=== PATIENT | female | born 1985 | race Two or more races ===

== ENCOUNTER 2016-10-15 13:39 | Emergency (ER) | payer OTHER ==
[2016-10-15 13:43] VITALS: BP 143/95; PULSE 86; TEMP 98; BMI 37.8
--- NOTE | 2016-10-15 15:17 | PDOC ---
History of Present Illness - General Chief Complaint: Injury Stated Complaint: RT HAND INJURY Time Seen by Provider: 10/15/16 15:12 History Source: Patient Exam Limitations: No Limitations - History of Present Illness Initial Comments: 10/15/16 17:30 Chief complaint: Fall Patient is a healthy 31-year-old female who states she tripped and fell and hit her left hand. Patient states she also hit her knees but is able to walk and they're just a little sore. GENERAL/CONSTITUTIONAL: No fever, weakness. dizziness HEAD, EYES, EARS, NOSE AND THROAT: No change in vision. No ear pain or discharge. No sore throat. CARDIOVASCULAR: No chest pain RESPIRATORY: No shortness of breath or cough GASTROINTESTINAL: No pain, nausea, vomiting, diarrhea or constipation GENITOURINARY: No dysuria MUSCULOSKELETAL: No neck or back pain, + left hand, bilateral knees SKIN: No rash, + laceration NEUROLOGIC: No headache, vertigo, loss of consciousness, or loss of sensation. GENERAL: The patient is awake, alert, and fully oriented, in no acute distress. HEAD: Normal with no signs of trauma. EYES: Pupils equal, round and reactive to light, sclera anicteric, conjunctiva clear. ENT: pharynx: no erythema, no exudate, uvula midline NECK: supple CHEST: clear, nontender, rr ABD: soft, nontender EXTREMITIES: Left hand with laceration on the palmar side at the base of the thumb, one small abrasion proximate to it, full range of motion, neurovascular intact. Exam of the rest of the hand is negative, bilateral knees with no deformity, no swelling, minimal tenderness, full range of motion, neurovascular intact. Other extremities, normal range of motion, no edema. NEUROLOGICAL: Normal speech, normal gait. SKIN: Warm, Dry Past History - Past Medical History Allergies/Adverse Reactions: Allergies Allergy/AdvReac Type Severity Reaction Status Date / Time No Known Allergies Allergy Verified 10/15/16 13:43 Home Medications: Ambulatory Orders Cephalexin [Keflex] 1,000 mg PO BID #26 capsule 10/15/16 GI Disorders: Yes (gerd) - Immunization History Immunization Up to Date: Yes - Psycho/Social/Smoking Cessation Hx Anxiety: No Suicidal Ideation: No Smoking History: Never smoked Have you smoked in the past 12 months: No Information on smoking cessation initiated: No Hx Alcohol Use: No Substance Use Type: None *Physical Exam - Vital Signs Last Vital Signs Temp Pulse Resp BP Pulse Ox 98 F 86 18 143/95 100 10/15/16 13:40 10/15/16 13:40 10/15/16 13:40 10/15/16 13:40 10/15/16 13:40 ED Treatment Course - RADIOLOGY Radiology Studies Ordered: Category Date Time Status WRIST W/HAND-LEFT* [RAD] Stat Radiology 10/15/16 15:12 Ordered Medical Decision Making - Medical Decision Making 10/15/16 Patient tripped and fell, with wound to her left hand and swelling. Tetanus is up to date. Patient will get an x-ray and be reevaluated. No knee x-rays are indicated. Foreign body on x-ray to right hand Attempted to remove foreign body, Betadine to area, local anesthesia. Gentle probe to area, was able to feel a foreign body but was unable to remove, patient will follow-up with hand surgeon. Discussed with Dr. Ugalde *DC/Admit/Observation/Transfer Diagnosis at time of Disposition: Foreign body of hand, left Qualifiers: Encounter type: initial encounter Qualified Code(s): S60.552A - Superficial foreign body of left hand, initial encounter - Discharge Dispostion Disposition: HOME Condition at time of disposition: Stable Admit: No - Prescriptions Prescriptions: Cephalexin [Keflex] 1,000 mg PO BID #26 capsule - Referrals Referrals: Crissy Madden [Primary Care Provider] - - Patient Instructions Printed Discharge Instructions: DI for Removal of Foreign Body From Skin Additional Instructions: Elevate your hand, take the Keflex 1000 mg every [address] Robledo first thing in the morning for further instructions Return to the ER if fever or feeling sick Can take Motrin 600 mg every 6 hours for pain - Post Discharge Activity Work/School Note: Back to Work
[2016-10-15] MEDS ORDERED: CEPHALEXIN MONOHYDRATE 500 MG CAPSULE (UD) PO ONE (16:53)
[2016-10-15] MEDS ORDERED: CEPHALEXIN MONOHYDRATE 500 MG CAPSULE (UD) ONE (16:59)
== END 2016-10-15 17:28 | disposition home or self-care (01) ==
LOC: JERFT 13:39
PROC: 0JCK0ZZ Extirpation of Matter from Left Hand Subcutaneous Tissue and Fascia, Open Approach (ICD-10-PCS; principal; 2016-10-15)
DX: S61.422A Laceration with foreign body of left hand, initial encounter (principal); W01.0XXA Fall on same level from slipping, tripping and stumbling without subsequent striking against object, initial encounter; Y93.89 Activity, other specified; Y92.89 Other specified places as the place of occurrence of the external cause
CPT/HCPCS: 20103; 73110-TC-LT; 73130-TC-LT; 99281-25

== ENCOUNTER 2017-03-27 19:17 | Emergency (ER) | payer OTHER ==
[2017-03-27 19:31] VITALS: BP 124/82; PULSE 78; TEMP 98.4; BMI 37.0
--- NOTE | 2017-03-27 20:16 | PDOC ---
History of Present Illness - General Chief Complaint: Respiratory Stated Complaint: WHEEZING Time Seen by Provider: 03/27/17 20:01 History Source: Patient Exam Limitations: No Limitations - History of Present Illness Initial Comments: CHIEF COMPLAINT: 31 y/o afebrile female with no significant PMH c/o cough and allergy symptoms x 1 week. HISTORY OF PRESENT ILLNESS: The patient states that she began with allergy symptoms of watery eyes, runny nose, stuffy nose and cough 1 week ago. She took sudafed for 2 days and was starting to feel better so she stopped the medication because she doesn't like to take medicine. She states after that her symptoms seemed to worsen and now her cough sounds more congested and she is having SOB. She denies fever, chills, earache, sore throat, CP, abd pain, n/ v/d. Vital signs on arrival are within normal limits. REVIEW OF SYSTEMS: GENERAL/CONSTITUTIONAL: No fever/chills. No weakness. No weight change. HEAD, EYES, EARS, NOSE AND THROAT: No change in vision. No ear pain or discharge. No sore throat. +watery eyes. CARDIOVASCULAR: +SOB. No chest pain. RESPIRATORY: +cough and wheezing. No hemoptysis. GASTROINTESTINAL: No abd pain, nausea, vomiting, diarrhea. GENITOURINARY: No dysuria, frequency, or change in urination. MUSCULOSKELETAL: No joint or muscle swelling or pain. No neck or back pain. SKIN: No rash or easy bruising. NEUROLOGIC: No headache, vertigo, loss of consciousness, or loss of sensation. PHYSICAL EXAM: GENERAL: The patient is awake, alert, and fully oriented, in no acute distress. She has a congested sounding cough. HEAD: Normal with no signs of trauma. ENT: Pupils equal, round and reactive to light, extraocular movements intact, sclera anicteric, conjunctiva clear. Neck supple. Nasal congestion and watery eyes. LUNGS: Diffuse expiratory wheezing across all lung verma. Normal excursion. No respiratory distress or use of accessory muscles. CV: RRR, S1/S2, no MRG. Cap refill < 2 sec. ABDOMEN: Soft, non-distended, non-tender even to deep palpation, no hepatomegaly or splenomegaly, no masses. EXTREMITIES: Normal range of motion, no edema. NEUROLOGICAL: Normal speech, normal gait. CN II-XII grossly intact. PSYCH: Normal mood, normal affect. SKIN: Warm, dry, normal turgor, no rashes or lesions noted. Past History - Past Medical History Allergies/Adverse Reactions: Allergies Allergy/AdvReac Type Severity Reaction Status Date / Time No Known Allergies Allergy Verified 03/27/17 19:29 Home Medications: Ambulatory Orders Albuterol Sulfate Inhaler - [Ventolin HFA Inhaler -] 1 - 2 inh PO Q4H #1 inhaler 03/27/17 Fexofenadine/Pseudoephedrine [Teodora-D 24 Hour Tablet] 1 each PO DAILY #14 tab.er.24h 03/27/17 Prednisone [Deltasone -] 40 mg PO DAILY #8 tablet 03/27/17 GI Disorders: Yes (gerd) - Immunization History Immunization Up to Date: Yes - Psycho/Social/Smoking Cessation Hx Anxiety: No Suicidal Ideation: No Smoking History: Current some day smoker Have you smoked in the past 12 months: Yes Information on smoking cessation initiated: No Hx Alcohol Use: No Substance Use Type: None *Physical Exam - Vital Signs Last Vital Signs Temp Pulse Resp BP Pulse Ox 98.4 F 78 16 124/82 98 03/27/17 19:30 03/27/17 19:30 03/27/17 19:30 03/27/17 19:30 03/27/17 19:30 Medical Decision Making - Medical Decision Making A/P: 31 y/o female with allergies and asthma. Plan is as follows: 1. hcg 2. CXR 3. PO prednisone 4. Duoneb CXR IMPRESSION: Unremarkable examination. The patient states she feels much better after duonebs and her repeat lung exam reveals scant wheezing but much improved. Gave her the results of the CXR. Will send rx for teodora D, prednisone, and albuterol inhaler. Instructed her to take as prescribed and complete the course of each. Instructed her to f/u with her doctor within 1 week and return to the ER with any worsening or concerning symptoms. The patient verbalizes understanding of all instructions, has no further questions and is awaiting discharge. *DC/Admit/Observation/Transfer Diagnosis at time of Disposition: Wheezing, Nasal congestion Seasonal allergies Qualifiers: Chronicity: acute Allergic rhinitis trigger: unspecified Qualified Code(s): J30.2 - Other seasonal allergic rhinitis - Discharge Dispostion Disposition: HOME Condition at time of disposition: Improved - Prescriptions Prescriptions: Fexofenadine/Pseudoephedrine [Teodora-D 24 Hour Tablet] 1 each PO DAILY #14 tab.er.24h Prednisone [Deltasone -] 40 mg PO DAILY #8 tablet Albuterol Sulfate Inhaler - [Ventolin HFA Inhaler -] 1 - 2 inh PO Q4H #1 inhaler - Referrals Referrals: Crissy Madden [Primary Care Provider] - Call tomorrow - Patient Instructions Printed Discharge Instructions: DI for Nasal Congestion, Allergies ( Alternative Therapy), Asthma -- Adult Additional Instructions: Discharge Instructions: -Take medications as prescribed -Follow up with your doctor within 1 week -Return to the ER with any worsening or concerning symptoms
[2017-03-27] MEDS ORDERED: predniSONE 20 MG TABLET (UD) PO ONE (20:23)
[2017-03-27] MEDS ORDERED: predniSONE 20 MG TABLET (UD) ONE (20:25)
[2017-03-27] MEDS ORDERED: ALBUTEROL SO4 2.5/IPRATROPIUM 0.5 INH SOL 3 ML VIAL.NEB. NEB ONE (20:26)
[2017-03-27] MEDS: ALBUTEROL SO4 2.5/IPRATROPIUM 0.5 INH SOL 3 ML VIAL.NEB. NEB SCH ×4 (20:29→21:39)
== END 2017-03-27 21:39 | disposition home or self-care (01) ==
LOC: JERFT 19:17
DX: J30.2 Other seasonal allergic rhinitis (principal)
CPT/HCPCS: 71020-TC; 84703; 99281-25

== ENCOUNTER 2017-11-25 17:01 | Emergency (ER) | payer OTHER ==
[2017-11-25 17:16] VITALS: BP 139/86; PULSE 70; TEMP 97.4; BMI 35.6
--- NOTE | 2017-11-25 17:18 | PDOC ---
Rapid Medical Evaluation Time Seen by Provider: 11/25/17 17:13 Medical Evaluation: Allergies Allergy/AdvReac Type Severity Reaction Status Date / Time No Known Allergies Allergy Verified 03/27/17 19:29 11/25/17 17:14 The patient presents with a chief complaint of: [Non radiating, Mid abdominal pain and vomiting. Started 1 hour prior. Started after eating soup "thinks its food poisoning" ] I have performed a brief in-person evaluation of this patient. Pertinent physical exam findings: vss, [Lungs clear, abdomen is soft, nondistended. ] I have ordered the following: [None] The patient will proceed to the ED for further evaluation. 11/25/17 17:30 Discharge Disposition - Diagnosis Abdominal pain - Referrals - Patient Instructions - Post Discharge Activity
--- NOTE | 2017-11-25 17:54 | PDOC ---
Attending Attestation - Resident Resident Name: Frank Yañez - ED Attending Attestation I have performed the following: I have examined & evaluated the patient, The case was reviewed & discussed with the resident, I agree w/resident's findings & plan, Exceptions are as noted
[2017-11-25] MEDS ORDERED: ONDANSETRON 4 MG/2 ML VIAL IVPUSH ONE (18:03)
[2017-11-25] MEDS ORDERED: FAMOTIDINE IV 20 MG/12 ML VIAL IVPB ONE (18:03)
[2017-11-25] MEDS ORDERED: FAMOTIDINE 20 MG/50 ML IVPB 20 MG/50 ML MG IVPB ONE (18:08)
[2017-11-25] MEDS ORDERED: ONDANSETRON 4 MG/2 ML VIAL ONE (18:08)
--- NOTE | 2017-11-25 18:10 | PDOC ---
History of Present Illness - General Chief Complaint: Pain, Acute Stated Complaint: STOMACH PAIN Time Seen by Provider: 11/25/17 17:13 - History of Present Illness Initial Comments: 11/25/17 18:02 Ms. Cifuentes is a 32 yo female w/ pmh of GERD who presents to the ED complaining of 3 hours of frequent vomiting. She reports this started after she attempted to eat some soup at around 3pm this afternoon (first meal of the day) . She has been vomiting up mostly green fluid and reports midline burning symptoms consistent with her GERD. The patient denies chest pain, shortness of breath, headache and dizziness. Denies fever, chills, diarrhea and constipation. Denies dysuria, frequency, urgency and hematuria. Allergies: NKDA Past History - Past Medical History Allergies/Adverse Reactions: Allergies Allergy/AdvReac Type Severity Reaction Status Date / Time No Known Allergies Allergy Verified 11/25/17 17:16 Home Medications: Ambulatory Orders Albuterol Sulfate Inhaler - [Ventolin HFA Inhaler -] 1 - 2 inh PO Q4H #1 inhaler 03/27/17 COPD: No GI Disorders: Yes (gerd) - Immunization History Immunization Up to Date: Yes - Suicide/Smoking/Psychosocial Hx Smoking History: Never smoked Have you smoked in the past 12 months: Yes Hx Alcohol Use: Yes (OCCASIONALLY) Drug/Substance Use Hx: No Substance Use Type: None Review of Systems - Review of Systems Comments:: 11/25/17 18:10 GENERAL/CONSTITUTIONAL: No fever or chills. No weakness. HEAD, EYES, EARS, NOSE AND THROAT: No change in vision. No ear pain or discharge. No sore throat. CARDIOVASCULAR: No chest pain or shortness of breath RESPIRATORY: No cough, wheezing, or hemoptysis. GASTROINTESTINAL: +Nausea with vomiting as described. Midline burning consistent w/ GERD symptoms. GENITOURINARY: No dysuria, frequency, or change in urination. MUSCULOSKELETAL: No joint or muscle swelling or pain. No neck or back pain. SKIN: No rash NEUROLOGIC: No headache, vertigo, loss of consciousness, or change in strength/ sensation. ENDOCRINE: No increased thirst. No abnormal weight change HEMATOLOGIC/LYMPHATIC: No anemia, easy bleeding, or history of blood clots. ALLERGIC/IMMUNOLOGIC: No hives or skin allergy. *Physical Exam - Vital Signs Last Vital Signs Temp Pulse Resp BP Pulse Ox 97.4 F L 70 18 139/86 100 11/25/17 17:12 11/25/17 17:12 11/25/17 17:12 11/25/17 17:12 11/25/17 17:12 - Physical Exam Comments: 11/25/17 18:14 GENERAL: Awake, alert, and fully oriented, in no acute distress HEAD: No signs of trauma, normocephalic, atraumatic EYES: PERRLA, EOMI, sclera anicteric, conjunctiva clear ENT: Auricles normal inspection, hearing grossly normal, nares patent, oropharynx clear without exudates. Moist mucosa NECK: Normal ROM, supple, no lymphadenopathy, JVD, or masses LUNGS: No distress, speaks full sentences, clear to auscultation bilaterally HEART: Regular rate and rhythm, normal S1 and S2, no murmurs, rubs or gallops, peripheral pulses normal and equal bilaterally. ABDOMEN: Soft, nontender, normoactive bowel sounds. No guarding, no rebound. No masses EXTREMITIES: Normal inspection, Normal range of motion, no edema. No clubbing or cyanosis. NEUROLOGICAL: Cranial nerves II through XII grossly intact. Normal speech, normal gait, no focal sensorimotor deficits SKIN: Warm, Dry, normal turgor, no rashes or lesions noted. ED Treatment Course - LABORATORY CBC & Chemistry Diagram: 11/25/17 18:20 11/25/17 18:20 Medical Decision Making - Medical Decision Making 11/25/17 18:15 Ms. Cifuentes is a 32 yo female w/ pmh of GERD presenting w/ GERD exacerbation, nausea, and vomiting. Zofran/Pepcid given for symptomatic treatment. CBC/CMP/ serum HCG sent for evaluation of patient status. 11/25/17 18:58 Labs grossly wnl. Patient reporting some relief with GI cocktail. Patient signed out to Dr. Ramires for further care. *DC/Admit/Observation/Transfer Diagnosis at time of Disposition: Abdominal pain - Referrals Referrals: Crissy Madden [Primary Care Provider] - - Patient Instructions - Post Discharge Activity
[2017-11-25] MEDS ORDERED: LACTATED RINGERS SOLUTION 1000 ML INFUS.BAG IV ONE (18:15)
[2017-11-25 18:27] LABS: BASO % 0.5 % (0-2.0); EOS % 0.8 % (0-4.5); HEMATOCRIT 39.3 % (32.4-45.2); HEMOGLOBIN 13.1 GM/dL (10.7-15.3); LYMPH % 11.2 % (8-40); MCH 32.9 pg (25.7-33.7); MCHC 33.4 g/dl (32.0-36.0); MEAN CELL VOLUME 98.6 fl (80-96); MEAN PLT VOLUME 8.5 fl (7.5-11.1); MONO % 4.1 % (3.8-10.2); NEUT % 83.4 % (42.8-82.8); PLATELET COUNT 294 K/MM3 (134-434); RBC 3.99 M/mm3 (3.60-5.2); RDW 13.6 % (11.6-15.6); WHITE BLOOD COUNT 14.3 K/mm3 (4.0-10.0)
[2017-11-25] MEDS ORDERED: KETOROLAC TROMETHAMINE 30 MG/1 ML VIAL IVPUSH ONE (18:49)
[2017-11-25 18:52] LABS: ALBUMIN 4.1 g/dl (3.4-5.0); ANION GAP 7 (8-16); BLOOD UREA NITROGEN 8 mg/dL (7-18); CALCIUM 9.1 mg/dL (8.5-10.1); CHLORIDE 104 mmol/L (98-107); CO2 27 mmol/L (21-32); CREATININE 0.6 mg/dL (0.55-1.02); GLUCOSE,RANDOM 103 mg/dL (74-106); SGPT/ALT 19 U/L (12-78); SODIUM 138 mmol/L (136-145)
[2017-11-25 18:53] LABS: ALK PHOS 46 U/L (45-117); BILIRUBIN,TOTAL 0.4 mg/dL (0.2-1.0); TOT PROT 7.2 g/dl (6.4-8.2)
[2017-11-25 18:54] LABS: POTASSIUM 3.8 mmol/L (3.5-5.1); SGOT/AST 13 U/L (15-37)
[2017-11-25] MEDS ORDERED: KETOROLAC TROMETHAMINE 30 MG/1 ML VIAL ONE (18:54)
--- NOTE | 2017-11-25 19:13 | PDOC ---
*Physical Exam - Vital Signs Last Vital Signs Temp Pulse Resp BP Pulse Ox 97.4 F L 70 18 139/86 100 11/25/17 17:12 11/25/17 17:12 11/25/17 17:12 11/25/17 17:12 11/25/17 17:12 ED Treatment Course - LABORATORY CBC & Chemistry Diagram: 11/25/17 18:20 11/25/17 18:20 - ADDITIONAL ORDERS Additional order review: Laboratory Results 11/25/17 11/25/17 18:20 18:20 Sodium 138 Potassium 3.8 Chloride 104 Carbon Dioxide 27 Anion Gap 7 L BUN 8 Creatinine 0.6 Creat Clearance w eGFR > 60 Random Glucose 103 Calcium 9.1 Total Bilirubin 0.4 AST 13 L ALT 19 Alkaline Phosphatase 46 Total Protein 7.2 Albumin 4.1 Serum , Qual Negative 11/25/17 18:20 RBC 3.99 MCV 98.6 H MCHC 33.4 RDW 13.6 MPV 8.5 Neutrophils % 83.4 H Lymphocytes % 11.2 Monocytes % 4.1 Eosinophils % 0.8 Basophils % 0.5 - Medications Given in the ED: ED Medications Discontinued Medications Generic Name Dose Route Start Last Admin Trade Name Freq PRN Reason Stop Dose Admin Famotidine 20 mg in 12 mls @ 144 mls/hr 11/25/17 18:03 11/25/17 18:22 Pepcid 20 Mg/12 Ml Push IVPB 11/25/17 18:07 144 mls/hr ONCE ONE Administration Ketorolac Tromethamine 30 mg 11/25/17 18:49 11/25/17 18:56 Toradol Injection - IVPUSH 11/25/17 18:50 30 mg ONCE ONE Administration Lactated Ringer's 1,000 ml 11/25/17 18:15 11/25/17 18:22 Lactated Ringers Solution IV 11/25/17 18:16 1,000 ml ONCE ONE Administration Ondansetron HCl 4 mg 11/25/17 18:03 11/25/17 18:20 Zofran Injection IVPUSH 11/25/17 18:04 4 mg ONCE ONE Administration Medical Decision Making - Medical Decision Making 11/25/17 19:12 Pt signed out to me by Dr. Yañez, day team. The patient is a 32F who presents with likely viral gastroenteritis. Pending fluids and PO challenge. 11/25/17 19:53 Pt states she is not feeling better. Indicates her pain is epigastric, nonradiating sharp pain. She states she has a hx of gerd but says this is "weirder" than her pain. Does not explain further. Ordered protonix and will send lipase. Negative Jensen's. 11/25/17 21:24 The patient is stating her pain has improved slightly. Will monitor and PO challenge. Hospitalist microblogged for short stay. 11/25/17 23:55 Pt states she feels better and passed the PO challenge. Will d/c home w/ PCP f/ u and Nexium. *DC/Admit/Observation/Transfer Diagnosis at time of Disposition: Abdominal pain Qualifiers: Abdominal location: epigastric Qualified Code(s): R10.13 - Epigastric pain - Discharge Dispostion Disposition: HOME Condition at time of disposition: Stable Admit: No - Prescriptions Prescriptions: Esomeprazole Magnesium [Nexium 24Hr] 20 mg PO ONCE #14 capsule.dr - Referrals Referrals: Crissy Madden [Primary Care Provider] - - Patient Instructions Printed Discharge Instructions: DI for Viral Gastroenteritis -- Adult, DI for Gastritis Additional Instructions: Please return to the ER if symptoms persist, worsen, or new symptoms arise. Please follow up with your primary care physician in 2-3 days. Please return to the ER if you have any signs or symptoms of chest pain, shortness of breath, uncontrollable fever, chills, nausea, vomiting, numbness, tingling, or weakness in any part of your body, changes in vision, or slurred speech. Please take your medications as prescribed. - Post Discharge Activity
[2017-11-25] MEDS ORDERED: PANTOPRAZOLE SODIUM 40 MG in SODIUM CHLORIDE 100 ML IVPB ONE (19:49)
[2017-11-25] MEDS ORDERED: SODIUM CHLORIDE 0.9% 1000 ML INFUS.BAG IV ONE (20:02)
[2017-11-25] MEDS ORDERED: PANTOPRAZOLE SODIUM 40 MG VIAL ONE (20:02)
[2017-11-25 20:16] LABS: LIPASE 74 U/L (73-393)
[2017-11-25] MEDS ORDERED: METOCLOPRAMIDE HCL INJECTION 10 MG/2 ML VIAL IVPB ONE (20:29)
[2017-11-25] MEDS ORDERED: METOCLOPRAMIDE HCL INJECTION 10 MG/2 ML VIAL ONE (20:42)
== END 2017-11-25 23:40 | disposition home or self-care (01) ==
LOC: JER 17:01
PROC: 3E0333Z Introduction of Anti-inflammatory into Peripheral Vein, Percutaneous Approach (ICD-10-PCS; principal; 2017-11-25)
PROC: 3E033GC Introduction of Other Therapeutic Substance into Peripheral Vein, Percutaneous Approach (ICD-10-PCS; 2017-11-25)
PROC: 3E033GC Introduction of Other Therapeutic Substance into Peripheral Vein, Percutaneous Approach (ICD-10-PCS; 2017-11-25)
DX: R10.13 Epigastric pain (principal); K21.9 Gastro-esophageal reflux disease without esophagitis
CPT/HCPCS: 36415; 80053; 83690; 84703; 85025; 96374; 96375; 99283-25

== ENCOUNTER 2017-11-28 02:43 | Emergency (ER) | payer OTHER ==
[2017-11-28 03:00] VITALS: BP 141/86; PULSE 72; TEMP 97.8; BMI 35.6
--- NOTE | 2017-11-28 03:41 | PDOC ---
History of Present Illness - General History Source: Patient Exam Limitations: No Limitations - History of Present Illness Initial Comments: 11/28/17 03:43 The patient is a 32 year old female, with a significant past medical history of gastritis and peptic ulcer disease, who presents to the emergency department with epigastric, nausea, and nonbloody emesis pain since 11pm last night. The patient had lab work done on 11/25/17 during an ED visit for the same complaint which was normal. She denies any other complaints. The patient denies chest pain, shortness of breath, headache and dizziness. The patient denies fever, chills, diarrhea and constipation. The patient denies dysuria, frequency, urgency and hematuria. Allergies: NKDA <Dara Cochran - Last Filed: 11/28/17 03:43> - General History Source: Patient <Gopi Rolle - Last Filed: 11/28/17 05:03> - General Chief Complaint: Pain Stated Complaint: STOMACH PAIN Time Seen by Provider: 11/28/17 03:38 Past History <Dara Cochran - Last Filed: 11/28/17 03:43> - Past Medical History COPD: No GI Disorders: Yes (gerd) - Immunization History Immunization Up to Date: Yes - Suicide/Smoking/Psychosocial Hx Smoking History: Never smoked Have you smoked in the past 12 months: No Information on smoking cessation initiated: No Hx Alcohol Use: No Drug/Substance Use Hx: No Substance Use Type: None <Gopi Rolle - Last Filed: 11/28/17 05:03> - Past Medical History Allergies/Adverse Reactions: Allergies Allergy/AdvReac Type Severity Reaction Status Date / Time No Known Allergies Allergy Verified 11/28/17 02:58 Home Medications: Ambulatory Orders Albuterol Sulfate Inhaler - [Ventolin HFA Inhaler -] 1 - 2 inh PO Q4H #1 inhaler 03/27/17 Esomeprazole Magnesium [Nexium 24Hr] 20 mg PO ONCE #14 capsule. 11/26/17 Sucralfate Oral Suspension [Carafate *Oral Susp*] 1 gm PO QID #120 ml 11/28/17 Review of Systems - Review of Systems Able to Perform ROS?: Yes Comments:: 11/28/17 03:43 CONSTITUTIONAL: Absent: fever, chills, diaphoresis, generalized weakness, malaise, loss of appetite HEENT: Absent: rhinorrhea, nasal congestion, throat pain, throat swelling, difficulty swallowing, mouth swelling, ear pain, eye pain, visual Changes CARDIOVASCULAR: Absent: chest pain, syncope, palpitations, irregular heart rate, lightheadedness , peripheral edema RESPIRATORY: Absent: cough, shortness of breath, dyspnea with exertion, orthopnea, wheezing, stridor, hemoptysis GASTROINTESTINAL: (+) epigastric pain, nausea, vomiting. Absent: abdominal distension, diarrhea, constipation, melena, hematochezia GENITOURINARY: Absent: dysuria, frequency, urgency, hesitancy, hematuria, flank pain, genital pain MUSCULOSKELETAL: Absent: myalgia, arthralgia, joint swelling SKIN: Absent: rash, itching, pallor HEMATOLOGIC/IMMUNOLOGIC: Absent: easy bleeding, easy bruising, lymphadenopathy, frequent infections ENDOCRINE: Absent: unexplained weight gain, unexplained weight loss, heat intolerance, cold intolerance NEUROLOGIC: Absent: headache, focal weakness or paresthesias, dizziness, unsteady gait, seizure, mental status changes, bladder or bowel incontinence PSYCHIATRIC: Absent: anxiety, depression, suicidal or homicidal ideation, hallucinations. <Dara Cochran - Last Filed: 11/28/17 03:43> *Physical Exam - Vital Signs Last Vital Signs Temp Pulse Resp BP Pulse Ox 97.8 F 72 14 141/86 99 11/28/17 02:58 11/28/17 02:58 11/28/17 02:58 11/28/17 02:58 11/28/17 02:58 - Physical Exam Comments: 11/28/17 03:44 GENERAL: Well developed, well nourished. Awake and alert. No acute distress. HEENT: Normocephalic, atraumatic. PERRLA, EOMI. No conjunctival pallor. Sclera are non- icteric. Moist mucous membranes. Oropharynx is clear. NECK: Supple. Full ROM. No JVD. Carotid pulses 2+ and symmetric, without bruits. No thyromegaly. No lymphadenopathy. CARDIOVASCULAR: Regular rate and rhythm. No murmurs, rubs, or gallops. Distal pulses are 2+ and symmetric. PULMONARY: No evidence of respiratory distress. Lungs clear to auscultation bilaterally. No wheezing, rales or rhonchi. ABDOMINAL: (+) minimal epigastric tenderness to palpation. Soft. Non-distended. No rebound or guarding. No organomegaly. Normoactive bowel sounds. MUSCULOSKELETAL Normal range of motion at all joints. No bony deformities or tenderness. No CVA tenderness. EXTREMITIES: No cyanosis. No clubbing. No edema. No calf tenderness. SKIN: Warm and dry. Normal capillary refill. No rashes. No jaundice. NEUROLOGICAL: Alert, awake, appropriate. Cranial nerves 2-12 intact. Normoreflexic in the upper and lower extremities. Normal speech. Toes are down-going bilaterally. Gait is normal without ataxia. PSYCHIATRIC: Cooperative. Good eye contact. Appropriate mood and affect. <Dara Cochran - Last Filed: 11/28/17 03:43> - Vital Signs Last Vital Signs Temp Pulse Resp BP Pulse Ox 97.8 F 72 14 141/86 99 11/28/17 02:58 11/28/17 02:58 11/28/17 02:58 11/28/17 02:58 11/28/17 02:58 <Gopi Rolle - Last Filed: 11/28/17 05:03> Medical Decision Making - Medical Decision Making 11/28/17 05:03 Dr. Rolle: The scribe's documentation has been prepared under my direction and personally reviewed by me in its entirery. I confirm that the note above accurately reflects all work, treatment, procedures, and medical decision making performed by me. <Gopi Rolle - Last Filed: 11/28/17 05:03> *DC/Admit/Observation/Transfer - Attestations Scribe Attestion: 11/28/17 03:45 Documentation prepared by Dara Cochran, acting as medical videographer for Gopi Rolle DO. <Dara Cochran - Last Filed: 11/28/17 03:43> - Discharge Dispostion Admit: No <Gopi Rolle - Last Filed: 11/28/17 05:03> Diagnosis at time of Disposition: PUD (peptic ulcer disease) Abdominal pain Qualifiers: Abdominal location: epigastric Qualified Code(s): R10.13 - Epigastric pain - Discharge Dispostion Disposition: HOME Condition at time of disposition: Stable - Prescriptions Prescriptions: Sucralfate Oral Suspension [Carafate *Oral Susp*] 1 gm PO QID #120 ml - Referrals Referrals: Martinez Tabares MD [Staff Physician] - - Patient Instructions Printed Discharge Instructions: DI for Peptic Ulcer Additional Instructions: avoid greasy or spicy food until you feel better. - Post Discharge Activity Forms/Work/School Notes: Back to Work
[2017-11-28] MEDS ORDERED: SUCRALFATE 1 GM TABLET (FP) ONE ×2 (03:54→04:00)
[2017-11-28] MEDS ORDERED: SUCRALFATE 1 GM TABLET (FP) PO ONE (04:00)
[2017-11-28] MEDS ORDERED: SUCRALFATE 1 GM/10 ML UNIT DOSE CUPS PO SCH (10:00)
== END 2017-11-28 05:15 | disposition home or self-care (01) ==
LOC: JER 02:43
DX: K27.9 Peptic ulcer, site unspecified, unspecified as acute or chronic, without hemorrhage or perforation (principal)
CPT/HCPCS: 99282-25

== ENCOUNTER 2022-10-20 10:28 | Emergency (ER) | payer OTHER ==
[2022-10-20 11:00] VITALS: BP 134/75; PULSE 103; RESP 18; TEMP 98.1; BMI 36.6
[2022-10-20] MEDS ORDERED: ONDANSETRON 4 MG/2 ML VIAL IVPUSH ONE ×2 (11:21→16:51)
[2022-10-20] MEDS ORDERED: SODIUM CHLORIDE 1,000 ML IV STA (11:21)
[2022-10-20] MEDS ORDERED: FAMOTIDINE 20 MG/50 ML IVPB 20 MG/50 ML MG IVPB ONE ×2 (11:21→11:30)
[2022-10-20] MEDS ORDERED: ONDANSETRON 4 MG/2 ML VIAL ONE ×2 (11:30→16:52)
[2022-10-20 12:00] LABS: BASO % 0.7 % (0-2.0); EOS % 0.1 % (0-4.5); HEMATOCRIT 44.1 % (32.4-45.2); HEMOGLOBIN 14.9 GM/dL (10.7-15.3); LYMPH % 11.1 % (8-40); MCH 33.4 pg (25.7-33.7); MCHC 33.9 g/dl (32.0-36.0); MEAN CELL VOLUME 98.7 fl (80-96); MEAN PLT VOLUME 8.3 fl (7.5-11.1); MONO % 4.4 % (3.8-10.2); NEUT % 83.7 % (42.8-82.8); PLATELET COUNT 359 10^3/uL (134-434); RBC 4.46 M/mm3 (3.60-5.2); RDW 13.1 % (11.6-15.6); WHITE BLOOD COUNT 12.4 K/mm3 (4.0-10.0)
[2022-10-20 12:13] LABS: ALBUMIN 4.1 g/dl (3.4-5.0); BLOOD UREA NITROGEN 16.4 mg/dL (7-18); CALCIUM 9.3 mg/dL (8.5-10.1)
[2022-10-20 12:16] LABS: CREATININE 0.7 mg/dL (0.55-1.3)
[2022-10-20 12:18] LABS: BILIRUBIN,TOTAL 0.4 mg/dL (0.2-1); TOT PROT 7.7 g/dl (6.4-8.2)
[2022-10-20] MEDS ORDERED: METOCLOPRAMIDE HCL INJECTION 10 MG/2 ML VIAL IVPUSH ONE (13:05)
[2022-10-20] MEDS ORDERED: METOCLOPRAMIDE HCL INJECTION 10 MG/2 ML VIAL ONE (13:13)
[2022-10-20 16:03] LABS: EPI CELLS 17 /uL (0-25.1); HCG,QUALITATIVE URINE Negative; HYALINE CASTS 2 /uL (0-3.1); URINE APPEARANCE CLEAR; URINE BACTERIA 205 /uL (0-1359); URINE BILIRUBIN NEGATIVE (NEGATIVE); URINE COLOR YELLOW; URINE GLUCOSE (UA) NEGATIVE (NEGATIVE); URINE KETONE 2+ (NEGATIVE); URINE LEUK ESTERASE NEGATIVE (NEGATIVE); URINE NITRITE NEGATIVE (NEGATIVE); URINE PROTEIN 1+ (NEGATIVE); URINE UROBILINOGEN 0.2 mg/dL (0.2-1.0); URINE WBC 29 /uL (0-25.8)
[2022-10-20 16:05] LABS: URINE RBC 86 /uL (0-23.9)
== END 2022-10-20 17:09 | disposition home or self-care (01) ==
LOC: JER 10:28
PROC: 3E033GC Introduction of Other Therapeutic Substance into Peripheral Vein, Percutaneous Approach (ICD-10-PCS; principal; 2022-10-20)
DX: K52.9 Noninfective gastroenteritis and colitis, unspecified (principal)
CPT/HCPCS: 36415; 80053; 81003; 83690; 84484; 84703; 85025; 87086; 93005; 93010; 99284-25